=== PATIENT | female | born 1945 | race Caucasian/White ===

== ENCOUNTER 2016-02-17 08:48 | Emergency (ER) | payer BC ==
--- NOTE | 2016-02-17 09:17 | Emergency Department Record ---
History of Present Illness - General Chief Complaint: Cough Stated Complaint: HEADACHE/CHOUGH Time Seen by Provider: 02/17/16 09:16 Source: Patient Mode of Arrival: Ambulatory Limitations: No limitations - History of Present Illness Initial Comments: The patient is here due to a 4 day hx of a cough, congestion, and sinus pressure and ARELLANO. The pain is in the face and frontal head area. It has been gradually worsening after the onset 4 days ago. She denies any SOB, WOOD, fever, or any balance issues. She does have a hx of frequent bronchitis. MD Complaint: Cough, Rhinorrhea, Sinus pain Onset/Timin -: Days(s) Severity: Moderate Severity scale (1-10): 8 Consistency: Constant - Related Data Home Medications Medication Instructions Recorded Confirmed Last Taken Budesonide 0.25 mg INH BID #120 02/14/16 02/17/16 02/17/16 Fluticasone Propionate [Flonase 15.8 ml NS QHS 02/14/16 02/17/16 02/16/16 Allergy Relief] Losartan Potassium 50 mg PO DAILY #90 02/14/16 02/17/16 02/17/16 Previous Rx's Medication Instructions Recorded Doxycycline Monohydrate [Mondoxyne 100 mg PO BID #20 capsule 02/17/16 Nl] Prednisolone 15Mg/5Ml [Prelone 10 ml PO DAILY #40 ml 02/17/16 15Mg/5Ml] Allergies Allergy/AdvReac Type Severity Reaction Status Date / Time sulfamethoxazole Allergy Mild seizures Verified 02/17/16 08:58 [From Bactrim] trimethoprim [From Bactrim] Allergy Mild seizures Verified 02/17/16 08:58 erythromycin base Allergy Unknown ITCHING Verified 02/17/16 08:58 hydrocodone bitartrate Allergy Unknown ITCHING Verified 02/17/16 08:58 [From VICODIN] tramadol [TRAMADOL] Allergy Unknown ITCHING Verified 02/17/16 08:58 Travel Screening - Travel/Exposure Within Last 30 Days Have you traveled within the last 30 days?: No - Travel/Exposure Within Last Year Have you traveled outside the [place] in the last year?: No - Additonal Travel Details Have you been exposed to anyone with a communicable illness?: No - Travel Symptoms Symptom Screening: None Review of Systems Constitutional: Denies: Chills, Fever Eyes: Denies: Eye discharge ENT: Reports: Congestion. Denies: Dental pain Respiratory: Reports: Cough. Denies: Dyspnea Cardiovascular: Denies: Arrhythmia, Chest pain Past Medical History - SOCIAL HISTORY Smoking Status: Never smoker Alcohol Use: None Drug Use: None - RESPIRATORY Hx Respiratory Disorders: Yes Hx Bronchitis: Yes - CARDIOVASCULAR Hx Cardio Disorders: Yes Hx Hypertension: Yes - NEURO Hx Neuro Disorders: No - GI Hx GI Disorders: No - Hx Genitourinary Disorders: No - ENDOCRINE Hx Endocrine Disorders: No - MUSCULOSKELETAL Hx Musculoskeletal Disorders: No - PSYCH Hx Psych Problems: No - HEMATOLOGY/ONCOLOGY Hx Hematology/Oncology Disorders: No Family Medical History Any Significant Family History?: Yes Hx Heart Disease: Mother, Children Physical Exam - General General Appearance: Alert, Oriented x3, Cooperative, No acute distress - Head Head exam: Atraumatic, Normocephalic, Normal inspection - Eye Eye exam: Normal appearance, PERRL - ENT ENT exam: Normal exam, Mucous membranes moist, Normal external ear exam, Normal orophraynx, TM's normal bilaterally Nasal Exam: Sinus tenderness (mild to the frontal and maxillary area.) Throat exam: Normal inspection. negative: Tonsillar erythema, Tonsillar exudate - Neck Neck exam: Normal inspection, Full ROM. negative: Tenderness - Respiratory Respiratory exam: Normal lung sounds bilaterally. negative: Respiratory distress - Cardiovascular Cardiovascular Exam: Regular rate, Normal rhythm, Normal heart sounds - Extremities Extremities exam: Normal inspection, Full ROM, Normal capillary refill. negative: Tenderness - Neurological Neurological exam: Alert, Normal gait, Oriented X3, Other (Neg Drift and Rhomberg exams.). negative: Abnormal gait, Motor sensory deficit - Psychiatric Psychiatric exam: negative: Agitated, Anxious, Depressed Course Vital Signs 02/17/16 09:01 Temperature 98.2 F Pulse Rate 101 H Respiratory 16 Rate Blood Pressure 145/91 Pulse Ox 96 - Reevaluation(s) Reevaluation #1: I did discuss the xray results with the patient and the need for F/U. We will treat her for a sinus and upper resp infection and she will need to see her PCP early this week if not better. 02/17/16 10:06 Medical Decision Making - Data Complexity MDM Data: X-Ray Ordered and/or Reviewed - Radiology Data Radiology results: Report reviewed (CXR: Neg.) Disposition Disposition: Discharge Clinical Impression: Sinus infection Qualifiers: Sinusitis location: unspecified location Chronicity: acute Recurrence: not specified as recurrent Qualified Code(s): J01.90 - Acute sinusitis, unspecified Disposition: Home, Self-Care Condition: (1) Good Instructions: Cold Symptoms (ED) Additional Instructions: Please take the Doxycycline as directed along with the Prelone. Use Flonase as directed along with an OTC antihistamine decongestant. Please see your PCP if not better in 2 days. Return to the ER for any fever, increased head pain, vomiting, balance issues or any trouble breathing. Prescriptions: Doxycycline Monohydrate [Mondoxyne Nl] 100 mg PO BID #20 capsule Prednisolone 15Mg/5Ml [Prelone 15Mg/5Ml] 10 ml PO DAILY #40 ml Forms: Patient Portal Access Time of Disposition: 10:09
[2016-02-17] MEDS ORDERED: KETOROLAC 30 MG/ML VIAL IM ONE (09:23)
--- NOTE | 2016-02-20 14:29 | RADIOLOGY REPORT ---
EXAM: CHEST, TWO VIEWS HISTORY: COUGH. TECHNIQUE: Frontal and lateral views of the chest were obtained. Comparison: Prior chest from 06/04/05. FINDINGS: The heart size is normal. The lungs are clear. No pneumothorax. IMPRESSION: NO ACUTE CARDIOPULMONARY PROCESS. JOB NUMBER: [id number] MTDD
== END 2016-02-17 10:25 | disposition home or self-care (01) ==
LOC: ER 08:48
DX: J01.90 Acute sinusitis, unspecified (principal); R05 Cough; R51 Headache
CPT/HCPCS: 99283; 96372; 99284; 71020; J1885

== ENCOUNTER 2016-10-07 11:53 | Day surgery (SDC) | payer BC ==
[~2016-10-07 11:53] MED LIST: CEFAZOLIN 1 Gram 1 GM/50 ML BAG IVPB ONE
[2016-10-07] MEDS ORDERED: MECLIZINE 25 MG TABLET PO ONE (13:32)
[2016-10-07] MEDS ORDERED: FAMOTIDINE 20MG TABLET PO ONE (13:32)
[2016-10-07] MEDS ORDERED: METOCLOPRAMIDE 10 MG TABLET PO ONE (13:32)
[2016-10-07] MEDS ORDERED: MIDAZOLAM HCL 2MG/2ML VIAL IV ONE (14:00)
[2016-10-07] MEDS ORDERED: LIDOCAINE 2% MDV (20MG/ML) 20ML VIAL IV ONE (14:00)
[2016-10-07] MEDS ORDERED: PROPOFOL 10 MG/ML VIAL IV ONE (14:00)
[2016-10-07] MEDS ORDERED: FENTANYL PF 100MCG/2ML VIAL IV ONE (14:00)
--- NOTE | 2016-10-15 10:00 | Operative Note ---
DATE OF SURGERY: 10/07/2016 PREOPERATIVE DIAGNOSIS: Hematuria, flank pain, and renal calculi. POSTOPERATIVE DIAGNOSIS: Hematuria, flank pain, and renal calculi. OPERATION: Cystoscopy, bilateral retrograde pyelograms. Anesthesia: Sedation. Indication: A 70-year-old female with right-sided flank pain and one episode of gross hematuria. Initial CT scan showed tiny renal calculi. No evidence of obstruction. She presents today for cystoscopy to complete the hematuria evaluation and to assess for her flank pain. PROCEDURE: Preop informed consent was obtained. Antibiotics were given. Sedation was administered. The patient was brought to the operating room, placed in lithotomy position with genitalia prepped and draped sterilely. Cystoscopy was performed. Urethra appears unremarkable. The bladder was inspected systematically. She does have moderate cystocele formation. The ureteral orifices had normal appearance and positioning. Careful evaluation of the bladder showed no mucosal bladder abnormality and urine effluxing for both ureters was clear. Bilateral retrograde pyelograms were performed using mobile C-arm fluoroscopy given the limitations of mobile C-arm to show fine anatomic detail, especially in light of the patient's body habitus. There was no gross evidence of any upper tract filling defect, stricture, or dilatation bilaterally, and drainage was prompt bilaterally as well. There was some left pyelovenous backflow noted but otherwise no other significant abnormality was seen. There was rapid drainage from both sides. At this point the scope was removed after the bladder was drained, and bimanual examination was carried out again revealing cystocele but she is status post hysterectomy. There is no evidence of pelvic or vaginal mass. The procedure was then terminated. The patient was awake and transferred to recovery in stable condition. PLAN: The patient was asked to follow up in 3 months. If she has any further episodes of hematuria in the interim, I will recommend further evaluation with a contrast-enhanced CT urogram. CC: Dr. Rosa Isela BARKLEY
== END 2016-10-07 14:42 | disposition home or self-care (01) ==
LOC: SUR 11:53
PROVIDERS: ATTEND Urology
DX: R31.0 Gross hematuria (principal)
CPT/HCPCS: 52005; 00910; 76000; J3010; J0690

== ENCOUNTER 2016-11-17 08:22 | Day surgery (SDC) | payer BC ==
[~2016-11-17 08:22] MED LIST changes: +ACETAMINOPHEN 1,000 MG/100 ML BTL IV ONE; -CEFAZOLIN 1 Gram 1 GM/50 ML BAG IVPB ONE; +FAMOTIDINE 20MG TABLET PO ONE; +MECLIZINE 25 MG TABLET PO ONE; +METOCLOPRAMIDE 10 MG TABLET PO ONE
[2016-11-17 08:36] LABS: BASO % 0.5 % (0-6); EOS % 2.1 % (0-6); GRAN % 60.7 % (47-80); HEMATOCRIT 45.8 % (35.0-47.0); HEMOGLOBIN 14.9 gm/dl (11.6-16.0); LYMPH % 27.3 % (16-45); MEAN CELL VOLUME 94.4 fl (81-97); MEAN CORPUSCULAR HEMOGLOBIN 30.7 pg (27-33); MEAN CORPUSCULAR HGB CONC 32.5 g/dl (32-36); MEAN PLATELET VOLUME 8.5 fl (7.4-10.4); MONO % 9.4 % (0-9); PLATELET COUNT 176 K/uL (130-400); RED BLOOD COUNT 4.85 M/uL (3.80-5.40); RED CELL DISTRIBUTION WIDTH 13.4 % (11.5-14.5); WHITE BLOOD COUNT W/O DIFF 4.3 K/uL (4.2-12.2)
[2016-11-17 08:58] LABS: BLOOD UREA NITROGEN 20 mg/dL (8-23); CREATININE 0.7 mg/dL (0.5-0.9); EST GLOMERULAR FILTRATION RATE > 60 mL/min; GLUCOSE,RANDOM 105 mg/dL (74-109)
[2016-11-17] MEDS ORDERED: KETOROLAC 30 MG/ML VIAL IVP ONE (14:00)
[2016-11-17] MEDS ORDERED: NEOSTIGMINE 1 MG/1 ML,10ML VIAL IV ONE (14:00)
[2016-11-17] MEDS ORDERED: ROCURONIUM BROMIDE 50MG/5ML VIAL IV ONE (14:00)
[2016-11-17] MEDS ORDERED: FENTANYL PF 100MCG/2ML VIAL IV ONE (14:00)
[2016-11-17] MEDS ORDERED: ONDANSETRON HCL IV 4 MG/2 ML VIAL IVP ONE (14:00)
[2016-11-17] MEDS ORDERED: GLYCOPYRROLATE 0.2 MG/ML ML IV ONE (14:00)
[2016-11-17] MEDS ORDERED: MIDAZOLAM HCL 2MG/2ML VIAL IV ONE (14:00)
[2016-11-17] MEDS ORDERED: SEVOFLURANE 250 ML INH ONE (14:00)
[2016-11-17] MEDS ORDERED: PROPOFOL 10 MG/ML VIAL IV ONE (14:00)
[2016-11-17] MEDS ORDERED: LIDOCAINE 2% MDV (20MG/ML) 20ML VIAL IV ONE (14:00)
[2016-11-17] MEDS ORDERED: SUCCINYLCHOLINE 20 MG/ML 10ML IVP ONE (14:00)
[2016-11-17] MEDS ORDERED: BUPIVACAINE 0.25% W/EPI MPF 30ML VIAL IVP ONE (15:57)
--- NOTE | 2016-11-18 14:00 | Operative Note ---
DATE OF SURGERY: 11/17/2016 Surgeon: Kirill Roy DO PREOPERATIVE DIAGNOSIS: Symptomatic biliary colic. POSTOPERATIVE DIAGNOSIS: Symptomatic biliary colic. OPERATION: Laparoscopic cholecystectomy. Indication: The patient is a 62-year-old female who is having ongoing right subcostal postprandial pain. Imaging studies did reveal a stone stuck in the gallbladder neck. She had symptoms consistent with biliary colic. Risks, benefits, and alternatives of surgery were discussed. Risks include bleeding, infection, ductal injury, possible conversion to open, postoperative bile leak. She understood this fully. PROCEDURE: Therefore, after consent was signed and questions answered, she was taken to the operating room and placed in a supine position. General anesthesia was administered per the department of anesthesia. The patient's abdomen was prepped and draped in the usual sterile fashion. The infraumbilical region was anesthetized with a total of 3 mL of 0.25% Sensorcaine with epinephrine. A 2 cm infraumbilical incision was made. This was carried down to the anterior rectus fascia. This was incised. Rowdy clamps were placed on the fascial edges and brought up into the wound. Stay sutures of 0 Vicryl were placed. Posterior rectus sheath was identified and incised. The peritoneal cavity was entered bluntly. At this time, additional 5 mm epigastric and two 5 mm right subcostal ports were placed. The patient was then rotated into reverse Trendelenburg with rotation to left. The patient had dense adhesions to the anterior aspect of the gallbladder. These were taken down with the Chris harmonic. Further cephalad and lateral retraction was applied. The hepatocystic triangle was thoroughly dissected out. There was no aberrant anatomy, no posterior ductal structures. We did switch to a dome-down technique to aid in visualization. Therefore, after this was done, the gallbladder was completely free with the exception of this being tethered by the cystic duct and artery. There was absolutely no other anatomy in the area. Each one was doubly clipped and cut in a standard fashion. Gallbladder was then free. This was extracted infraumbilically. Right upper quadrant was rechecked and found to be hemostatic. No bleeding. No bile leak. No bowel injury noted. The patient was leveled out. The pneumoperitoneum was released. All ports were removed. The fascia was closed with 0 Vicryl in a [id number] fashion. The skin at all ports was closed with 4-0 Vicryl. She was taken to the recovery room in satisfactory condition. FINDINGS AT THE TIME OF SURGERY: Chronic cholecystitis. CC: Rosa Isela BARKLEY
== END 2016-11-17 14:05 | disposition home or self-care (01) ==
LOC: SUR 08:22
PROVIDERS: ATTEND Surgery
DX: K80.20 Calculus of gallbladder without cholecystitis without obstruction (principal); I10 Essential (primary) hypertension
CPT/HCPCS: 85025; 80048; 47562; 00790; J1885; J2405; J3010; J0330; J2710

== ENCOUNTER 2017-02-19 06:51 | Day surgery (SDC) | payer BC ==
[~2017-02-19 06:51] MED LIST changes: +CEFAZOLIN 2 Gram 2 GM/50 ML BAG IVPB ONE
[2017-02-19] MEDS ORDERED: LIDOCAINE 2% MDV (20MG/ML) 20ML VIAL IV ONE (06:52)
[2017-02-19] MEDS ORDERED: ONDANSETRON HCL IV 4 MG/2 ML VIAL IVP ONE (06:52)
[2017-02-19] MEDS ORDERED: EPHEDRINE SULFATE 50 MG/ML ML IV ONE (06:52)
[2017-02-19] MEDS ORDERED: DEXAMETHASONE 4 MG/ML 1ML VIAL IVP ONE (06:52)
[2017-02-19] MEDS ORDERED: FENTANYL PF 100MCG/2ML VIAL IV ONE (06:52)
[2017-02-19] MEDS ORDERED: PROPOFOL 10 MG/ML VIAL IV ONE (06:52)
[2017-02-19] MEDS ORDERED: ROPIVACAINE HCL (NAROPIN) /PF 5MG/ML 20ML VIAL IV ONE (06:52)
[2017-02-19] MEDS ORDERED: KETOROLAC 30 MG/ML VIAL IVP ONE (06:52)
[2017-02-19] MEDS ORDERED: MIDAZOLAM HCL 2MG/2ML VIAL IV ONE (06:52)
[2017-02-19] MEDS ORDERED: SEVOFLURANE 250 ML INH ONE (06:52)
[2017-02-19] MEDS ORDERED: EPINEPHRINE 1 MG/ML AMPUL SQ ONE (06:52)
[2017-02-19 07:42] LABS: BASO % 0.4 % (0-6); GRAN % 52.9 % (47-80); HEMATOCRIT 46.4 % (35.0-47.0); HEMOGLOBIN 15.1 gm/dl (11.6-16.0); LYMPH % 35.2 % (16-45); MEAN CELL VOLUME 94.5 fl (81-97); MEAN CORPUSCULAR HEMOGLOBIN 30.8 pg (27-33); MEAN CORPUSCULAR HGB CONC 32.5 g/dl (32-36); MEAN PLATELET VOLUME 8.5 fl (7.4-10.4); MONO % 8.5 % (0-9); PLATELET COUNT 201 K/uL (130-400); RED BLOOD COUNT 4.91 M/uL (3.80-5.40); RED CELL DISTRIBUTION WIDTH 13.5 % (11.5-14.5)
[2017-02-19 07:53] LABS: BLOOD UREA NITROGEN 19 mg/dL (8-23); CREATININE 0.7 mg/dL (0.5-0.9); EST GLOMERULAR FILTRATION RATE > 60 mL/min; GLUCOSE,RANDOM 102 mg/dL (74-109)
--- NOTE | 2017-02-20 12:30 | Operative Note ---
DATE OF SURGERY: 02/19/2017 Surgeon: Cody Bassett DO PREOPERATIVE DIAGNOSES: 1. Tear of the left rotator cuff. 2. Impingement syndrome, left shoulder. POSTOPERATIVE DIAGNOSES: 1. Tear of the left rotator cuff. 2. Impingement syndrome of left shoulder. 3. Chondromalacia of the humeral head, left shoulder. OPERATION: 1. Arthroscopic repair of the left rotator cuff. 2. Arthroscopic subacromial decompression and acromioplasty, left shoulder. 3. Arthroscopic chondroplasty of the humeral head, left shoulder. DESCRIPTION OF PROCEDURE: This 71-year-old female was taken to the operating room. General anesthesia was induced. The patient was placed in teach chair position. All bony prominences well padded and head well secured. The left shoulder prepped with Hibiclens and draped in the usual sterile fashion. A posterior portal was established in the glenohumeral joint of the left shoulder and initial evaluation of the joint demonstrated evidence of a tear of the supraspinatus tendon. Full-thickness tear was present anteriorly just behind the biceps tendon which appeared to be normal. An anterior portal was established, and probing of the labrum did not reveal any detachment from the bony glenoid but there was superficial fraying of the anterior-superior labrum, which was debrided with the rotating shaver. We placed a marker suture in the rotator cuff from a lateral approach. Subsequently, the scope was placed in the subacromial space and thorough subacromial decompression and acromioplasty were performed. The area of the suture was identified. It was marked. The suture was removed. We then debrided the tear utilizing the Arthrocare wand and rotating shaver. Thorough subacromial decompression and acromioplasty gave us excellent visualization. Once the extent of the tear was identified, we then began repair by first debriding the tuberosity to healthy appearing bone. An Arthrex speed bridge technique was used by placing 2 SwiveLock anchors adjacent to the articular cartilage; one at the anterior and one at the posterior margin of the tear. One with FiberTape and the second with TigerTape. These were then shuttled through the rotator cuff and a single limb of each one of these sutures was then grasped and placed through a 3rd SwiveLock anchor which was placed inferior to the anterior anchor. Traction placed on the sutures to bring the cuff down tightly to its anatomic position. Subsequently the 2 remaining tails of sutures were placed through a 4th SwiveLock anchor which was placed inferior to the posterior anchor and again traction placed on the sutures to bring the cuff down tightly. This was seen to be satisfactory and the sutures were cut. The wound was irrigated and the instruments were removed. The portals closed with 4-0 nylon suture. Sterile dressings were applied with an UltraSling. The patient was taken to the recovery room in satisfactory condition. GROSS PATHOLOGY: Advanced degenerative changes of the humeral head were present with severe grade 3 changes being identified at the articular surface. This lesion was at least 3-4 cm in greatest dimension. Full-thickness tear of the rotator cuff was also apparent. The biceps appeared normal. Minimal superficial fraying of the labrum was identified but was otherwise unremarkable. The tendon was repaired as described above using Arthrex speed bridge technique using 4.75 SwiveLock anchors. CC: DO FILIPPO Roberson
== END 2017-02-19 12:45 | disposition home or self-care (01) ==
LOC: SUR 06:51
PROVIDERS: ATTEND Orthopaedic Surgery
DX: M75.122 Complete rotator cuff tear or rupture of left shoulder, not specified as traumatic (principal); M25.812 Other specified joint disorders, left shoulder; M94.212 Chondromalacia, left shoulder; I10 Essential (primary) hypertension
CPT/HCPCS: 29827; 29826; 01630; 64415; 85025; 80048; J1885; J2405; J3010; J0690; J2795; J0171

== ENCOUNTER 2017-02-27 13:26 | Emergency (ER) | payer BC ==
--- NOTE | 2017-02-27 13:49 | Emergency Department Record ---
History of Present Illness - General Chief complaint: Swelling of legs Time Seen by Provider: 02/27/17 13:38 Source: Patient Mode of Arrival: Ambulatory Limitations: No limitations - History of Present Illness Initial comments: The patient is here due to feeling like her legs are swollen for the last day or so. She denies any leg, calf or thigh pain but just feels like her ankles are tight. There is no reported CP, SOB, fever, or cough. The patient states she may have gained 10 lbs in the last week. She did have shoulder surgery last week but has been ambulatory every day. MD Complaint: Extremity swelling Onset/Timin -: Days(s) Location: Bilateral, Ankle, Lower Leg History of Same: Yes Consistency: Constant Improves with: Nothing Worsens with: Nothing Associated Symptoms: Denies other symptoms - Related Data Home Medications Medication Instructions Recorded Confirmed Last Taken Aspirin 81 mg PO DAILY 02/27/17 02/27/17 02/27/17 Previous Rx's Medication Instructions Recorded Furosemide [Lasix] 20 mg PO DAILY #5 tablet 02/27/17 Potassium Chloride 20 meq PO DAILY #5 tab.er.prt 02/27/17 Allergies Allergy/AdvReac Type Severity Reaction Status Date / Time sulfamethoxazole Allergy Mild seizures Verified 02/17/16 08:58 [From Bactrim] trimethoprim [From Bactrim] Allergy Mild seizures Verified 02/17/16 08:58 erythromycin base Allergy Unknown ITCHING Verified 02/17/16 08:58 hydrocodone bitartrate Allergy Unknown ITCHING Verified 02/17/16 08:58 [From VICODIN] tramadol [TRAMADOL] Allergy Unknown ITCHING Verified 02/17/16 08:58 Travel Screening - Travel/Exposure Within Last 30 Days Have you traveled within the last 30 days?: No - Travel/Exposure Within Last Year Have you traveled outside the [place] in the last year?: No - Additonal Travel Details Have you been exposed to anyone with a communicable illness?: No - Travel Symptoms Symptom Screening: None Review of Systems Constitutional: Denies: Chills, Fever Eyes: Denies: Eye discharge ENT: Denies: Congestion Respiratory: Denies: Cough, Dyspnea Cardiovascular: Denies: Chest pain Past Medical History - SOCIAL HISTORY Smoking Status: Never smoker Alcohol Use: None Drug Use: None - RESPIRATORY Hx Respiratory Disorders: Yes Hx Bronchitis: Yes (CHRONIC) - CARDIOVASCULAR Hx Cardio Disorders: Yes Hx Hypertension: Yes (CONTROLLED WITH MEDS) - NEURO Hx Neuro Disorders: No - GI Hx GI Disorders: Yes Hx Abdominal Pain: Yes (RT FLANK) Hx Reflux: Yes (OCC.) Hx Nausea/Vomiting: Yes (occass.) Hx of Polyps: Yes (POLYP COLON BENIGN) - Hx Genitourinary Disorders: No Hx Kidney Stones: Yes (POSSIBLY PASSED) - ENDOCRINE Hx Endocrine Disorders: No - MUSCULOSKELETAL Hx Musculoskeletal Disorders: No Hx Arthritis: Yes (OSTEOARTHRITIS) Comment:: HX FACET BLOCK, SPONDYLOSIS - PSYCH Hx Psych Problems: No - HEMATOLOGY/ONCOLOGY Hx Hematology/Oncology Disorders: No Family Medical History Any Significant Family History?: Yes Hx Heart Disease: Mother, Children Physical Exam - General General Appearance: Alert, Oriented x3, Cooperative, No acute distress - Head Head exam: Atraumatic, Normocephalic, Normal inspection - Eye Eye exam: Normal appearance, PERRL - Neck Neck exam: Normal inspection, Full ROM. negative: Tenderness - Respiratory Respiratory exam: Normal lung sounds bilaterally. negative: Respiratory distress - Cardiovascular Cardiovascular Exam: Regular rate, Normal rhythm, Normal heart sounds - GI/Abdominal GI/Abdominal exam: Soft, Normal bowel sounds. negative: Tenderness - Extremities Extremities exam: Normal inspection, Full ROM, Other (There is no pedal edema but the patient states her ankles are more swollen than normal.). negative: Calf tenderness, Joint swelling, Pedal edema, Tenderness (There is no calf, posterior knee or thigh tenderness.) - Neurological Neurological exam: Alert, Normal gait. negative: Abnormal gait, Motor sensory deficit Course Vital Signs 02/27/17 13:37 Temperature 98.5 F Pulse Rate [ 97 H Pulse Ox Probe] Respiratory 18 Rate Blood Pressure 179/94 [Right Arm] Pulse Ox 97 - Reevaluation(s) Reevaluation #1: The patient is doing very well at this time. She denies any CP, SOB, or any leg pain. I did discuss the lab results and the need for f/u with her PCP. The patient is aware of the mildly elevated single LFT test. 02/27/17 14:34 Medical Decision Making - Lab Data Result diagrams: 02/27/17 13:50 02/27/17 13:50 Disposition Disposition: Discharge Clinical Impression: Edema extremities Disposition: Home, Self-Care Condition: (2) Stable Instructions: Leg Edema (ED) Additional Instructions: Please take the medicines as directed for 5 days. Please see your PCP next week for recheck and return to the ER for any worsening symptoms. Prescriptions: Furosemide [Lasix] 20 mg PO DAILY #5 tablet Potassium Chloride 20 meq PO DAILY #5 tab.er.prt Forms: Patient Portal Access Time of Disposition: 14:33 Quality - Quality Measures Quality Measures: N/A - Blood Pressure Screening View Details: Yes Does Patient Have Any of the Following: No Blood Pressure Classification: Pre-Hypertensive BP Reading Systolic Measurement: 161 Diastolic Measurement: 84 Screening for High Blood Pressure: < Pre-Hypertensive BP, F/U Documented > [ [id number]] Pre-Hypertensive Follow-up Interventions: Referral to alternative/primary care provider.
[2017-02-27 14:05] LABS: BASO % 0.3 % (0-6); EOS % 2.9 % (0-6); GRAN % 64.3 % (47-80); HEMOGLOBIN 13.5 gm/dl (11.6-16.0); LYMPH % 23.7 % (16-45); MEAN CELL VOLUME 95.9 fl (81-97); MEAN CORPUSCULAR HEMOGLOBIN 30.8 pg (27-33); MEAN CORPUSCULAR HGB CONC 32.1 g/dl (32-36); MEAN PLATELET VOLUME 8.5 fl (7.4-10.4); MONO % 8.8 % (0-9); PLATELET COUNT 195 K/uL (130-400); RED BLOOD COUNT 4.38 M/uL (3.80-5.40); RED CELL DISTRIBUTION WIDTH 13.6 % (11.5-14.5); WHITE BLOOD COUNT W/O DIFF 5.9 K/uL (4.2-12.2)
[2017-02-27 14:20] LABS: BLOOD UREA NITROGEN 22 mg/dL (8-23); CREATININE 0.7 mg/dL (0.5-0.9); EST GLOMERULAR FILTRATION RATE > 60 mL/min
[2017-02-27 14:23] LABS: GLUCOSE,RANDOM 95 mg/dL (74-109)
[2017-02-27 14:26] LABS: ALB/GLOB RATIO 1.4 (1.1-1.8); ALBUMIN 4.1 g/dL (4.0-5.0); ALKALINE PHOSPHATASE 102 U/L (35-104); ALT/SGPT 43 U/L (<33); AST/SGOT 26 U/L (10.0-35.0)
== END 2017-02-27 14:41 | disposition home or self-care (01) ==
LOC: ER 13:26
DX: R60.0 Localized edema (principal); I10 Essential (primary) hypertension
CPT/HCPCS: 80053; 85025; 99283

== ENCOUNTER 2017-08-24 05:29 | Emergency (ER) | payer BC ==
[2017-08-24] MEDS ORDERED: ONDANSETRON HCL IV 4 MG/2 ML VIAL IV ONE (06:03)
[2017-08-24] MEDS ORDERED: 0.9 % SODIUM CHLORIDE 1,000 ML BAG IV ONE (06:03)
--- NOTE | 2017-08-24 06:03 | Emergency Department Record ---
History of Present Illness - General Source: Patient Mode of Arrival: Ambulatory Limitations: No limitations - History of Present Illness Initial comments: pt thinks she has a kidney stone. she has had them in the past. she has nausea. she has had pain for 2 days MD Complaint: Other Onset/Timin -: Days(s) Radiation: R flank Severity: Moderate Severity scale (1-10): 6 Quality: Sharp Consistency: Constant, Getting worse Improves with: Medication Worsens with: Other Patient : No Associated Symptoms: Abdominal pain, Nausea/vomiting - Related Data Sexually active: No <Alexandra Hoyos - Last Filed: 08/24/17 06:45> <Aldo Olvera - Last Filed: 08/24/17 07:16> - General Chief complaint: Flank Pain Stated complaint: FLANK PAIN Time Seen by Provider: 08/24/17 05:48 - Related Data Previous Rx's Medication Instructions Recorded Lidocaine Patch [Lidoderm] 1 ea TOP DAILY #7 patch 08/24/17 Allergies Allergy/AdvReac Type Severity Reaction Status Date / Time sulfamethoxazole Allergy Mild seizures Verified 08/24/17 05:43 [From Bactrim] trimethoprim [From Bactrim] Allergy Mild seizures Verified 08/24/17 05:43 erythromycin base Allergy Unknown ITCHING Verified 08/24/17 05:43 hydrocodone bitartrate Allergy Unknown ITCHING Verified 08/24/17 05:43 [From VICODIN] tramadol [TRAMADOL] Allergy Unknown ITCHING Verified 08/24/17 05:43 Travel Screening - Travel/Exposure Within Last 30 Days Have you traveled within the last 30 days?: No <Alexandra Hoyos - Last Filed: 08/24/17 06:45> Review of Systems Reviewed: No additional complaints except as noted below Constitutional: Reports: As per HPI. Denies: Chills, Fever, Malaise, Night sweats, Weakness, Weight change Eyes: Reports: As per HPI. Denies: Eye discharge, Eye pain, Photophobia, Vision change ENT: Reports: As per HPI. Denies: Congestion, Dental pain, Ear pain, Epistaxis , Hearing loss, Throat pain Respiratory: Reports: As per HPI. Denies: Cough, Dyspnea, Hemoptysis, Stridor, Wheezes Cardiovascular: Reports: As per HPI. Denies: Arrhythmia, Chest pain, Dyspnea on exertion, Edema, Murmurs, Orthopnea, Palpitations, Paroxysmal nocturnal dyspnea, Rheumatic Fever, Syncope Endocrine: Reports: As per HPI. Denies: Fatigue, Heat or cold intolerance, Polydipsia, Polyuria Gastrointestinal: Reports: As per HPI, Abdominal pain, Nausea. Denies: Constipation, Diarrhea, Hematemesis, Hematochezia, Melena, Vomiting Genitourinary: Reports: As per HPI. Denies: Abnormal menses, Discharge, Dyspareunia, Dysuria, Frequency, Hematuria, Incontinence, Retention, Urgency Musculoskeletal: Reports: As per HPI. Denies: Arthralgia, Back pain, Gout, Joint swelling, Myalgia, Neck pain Skin: Reports: As per HPI. Denies: Bruising, Change in color, Change in hair/ nails, Lesions, Pruritus, Rash Neurological: Reports: As per HPI. Denies: Abnormal gait, Confusion, Headache, Numbness, Paresthesias, Seizure, Tingling, Tremors, Vertigo, Weakness Psychiatric: Reports: As per HPI. Denies: Anxiety, Auditory hallucinations, Depression, Homicidal thoughts, Suicidal thoughts, Visual hallucinations Hematological/Lymphatic: Reports: As per HPI. Denies: Anemia, Blood Clots, Easy bleeding, Easy bruising, Swollen glands <Alexandra Hoyos - Last Filed: 08/24/17 06:45> Past Medical History - SOCIAL HISTORY Smoking Status: Never smoker Alcohol Use: None Drug Use: None - RESPIRATORY Hx Respiratory Disorders: Yes Hx Bronchitis: Yes (CHRONIC) - CARDIOVASCULAR Hx Cardio Disorders: Yes Hx Hypertension: Yes (CONTROLLED WITH MEDS) - NEURO Hx Neuro Disorders: No - GI Hx GI Disorders: Yes Hx Abdominal Pain: Yes (RT FLANK) Hx Reflux: Yes (OCC.) Hx Nausea/Vomiting: Yes (occass.) Hx of Polyps: Yes (POLYP COLON BENIGN) - Hx Genitourinary Disorders: Yes Hx Kidney Stones: Yes (POSSIBLY PASSED) - ENDOCRINE Hx Endocrine Disorders: No - MUSCULOSKELETAL Hx Musculoskeletal Disorders: No Hx Arthritis: Yes (OSTEOARTHRITIS) Comment:: HX FACET BLOCK, SPONDYLOSIS - PSYCH Hx Psych Problems: No - HEMATOLOGY/ONCOLOGY Hx Hematology/Oncology Disorders: No <Alexandra Hoyos - Last Filed: 08/24/17 06:45> Family Medical History Any Significant Family History?: Yes Hx Heart Disease: Mother, Children <Alexandra Hoyos - Last Filed: 08/24/17 06:45> Physical Exam - General General Appearance: Alert, Oriented x3, Cooperative, Mild distress - Head Head exam: Normal inspection - Eye Eye exam: Normal appearance, PERRL, EOMI Pupils: Normal accommodation - ENT ENT exam: Normal exam, Mucous membranes moist, Normal external ear exam, Normal orophraynx Ear exam: Normal external inspection. negative: External canal tenderness Nasal Exam: Normal inspection. negative: Discharge, Sinus tenderness Mouth exam: Normal external inspection, Tongue normal Teeth exam: Normal inspection. negative: Dental caries Throat exam: Normal inspection. negative: Tonsillar erythema, Tonsillar exudate - Neck Neck exam: Normal inspection, Full ROM. negative: Tenderness - Respiratory Respiratory exam: Normal lung sounds bilaterally. negative: Respiratory distress - Cardiovascular Cardiovascular Exam: Regular rate, Normal rhythm, Normal heart sounds - GI/Abdominal GI/Abdominal exam: Soft, Normal bowel sounds. negative: Tenderness - Rectal Rectal exam: Deferred - exam: Deferred - Extremities Extremities exam: Normal inspection, Full ROM, Normal capillary refill. negative: Tenderness - Back Back exam: Reports: Normal inspection, Full ROM. Denies: Muscle spasm, Rash noted, Tenderness - Neurological Neurological exam: Alert, CN II-XII intact, Normal gait, Oriented X3 - Psychiatric Psychiatric exam: Normal affect, Normal mood - Skin Skin exam: Dry, Intact, Normal color, Warm <Alexandra Hoyos - Last Filed: 08/24/17 06:45> Course Vital Signs 08/24/17 05:32 Temperature 98.0 F Pulse Rate 66 Respiratory 20 Rate Blood Pressure 176/83 Pulse Ox 97 - Reevaluation(s) Reevaluation #1: 08/24/17 06:46 care being assumed by dr olvera <Alexandra Hoyos - Last Filed: 08/24/17 06:45> Vital Signs 08/24/17 08/24/17 08/24/17 05:32 06:54 07:12 Temperature 98.0 F Pulse Rate 66 Pulse Rate [ 60 Pulse Ox Probe] Respiratory 20 20 Rate Blood Pressure 176/83 Blood Pressure 158/98 [Left Arm] Pulse Ox 97 98 <Aldo Olvera - Last Filed: 08/24/17 07:16> Medical Decision Making - Lab Data Result diagrams: 08/24/17 05:40 08/24/17 05:40 <Alexandra Hoyos Tadeo - Last Filed: 08/24/17 06:45> - Data Complexity MDM Data: Labs Ordered and/or Reviewed, X-Ray Ordered and/or Reviewed - Lab Data Result diagrams: 08/24/17 05:40 08/24/17 05:40 Lab Results 08/24/17 08/24/17 08/24/17 Range/Units 05:40 05:40 06:35 WBC 5.6 (4.2-12.2) K/uL RBC 4.95 (3.80-5.40) M/uL Hgb 15.2 (11.6-16.0) gm/dl Hct 47.4 H (35.0-47.0) % MCV 95.8 (81-97) fl MCH 30.7 (27-33) pg MCHC 32.1 (32-36) g/dl RDW 13.6 (11.5-14.5) % Plt Count 209 (130-400) K/uL MPV 8.7 (7.4-10.4) fl Gran % 51.5 (47-80) % Lymphocytes % 36.3 (16-45) % Monocytes % 8.4 (0-9) % Eosinophils % 3.4 (0-6) % Basophils % 0.4 (0-6) % Sodium 141 (136-145) mmol/L Potassium 4.1 (3.4-4.5) mmol/L Chloride 103 (98-107) mmol/L Carbon Dioxide 27.0 (22-29) mmol/L Anion Gap 11.0 (7-16) BUN 30 H (8-23) mg/dL Creatinine 0.9 (0.5-0.9) mg/dL Estimated GFR > 60 mL/min Random Glucose 125 H (74-109) mg/dL Calcium 9.4 (8.8-10.2) mg/dL Total Bilirubin 0.70 (0.2-1.0) mg/dL AST 21 (10.0-35.0) U/L ALT 27 (<33) U/L Alkaline Phosphatase 93 (35-104) U/L Total Protein 7.1 (6.6-8.7) g/dL Albumin 4.2 (4.0-5.0) g/dL Globulin 2.9 (1.4-4.8) gm/dL Albumin/Globulin Ratio 1.4 (1.1-1.8) Urine Color Yellow Urine Appearance Clear Urine pH 6.5 (5.0-8.0) Ur Specific [place] 1.020 (1.002-1.030) Urine Protein Negative (NEGATIVE) Urine Glucose (UA) Negative (NEGATIVE) Urine Ketones Negative (NEGATIVE) Urine Blood Negative (NEGATIVE) Urine Nitrite Negative (NEGATIVE) Urine Bilirubin Negative (NEGATIVE) Urine Urobilinogen 0.2 (0.20 - 1.00) E.U./dL Ur Leukocyte Esterase Negative (NEGATIVE) - Radiology Data Radiology results: Report reviewed (CT: 5 mm nonobstructing calculus R lower pole of kidney, neg hydro or ureter stone.) <Aldo Olvera - Last Filed: 08/24/17 07:16> Disposition Disposition: Discharge <Alexandra Hoyos - Last Filed: 08/24/17 06:45> Disposition: Discharge Time of Disposition: 07:15 <Aldo Olvera - Last Filed: 08/24/17 07:16> Clinical Impression: Flank pain, acute Disposition: Home, Self-Care Condition: (2) Stable Instructions: Flank Pain (ED) Additional Instructions: PLease take you home pain medicines as needed. Use the Lidoderm as directed. Please see your family doctor for recheck later this week. Return to the ER for any worsening issues. Prescriptions: Lidocaine Patch [Lidoderm] 1 ea TOP DAILY #7 patch Forms: Patient Portal Access Quality - Blood Pressure Screening Does Patient Have Any of the Following: No Blood Pressure Classification: Pre-Hypertensive BP Reading Systolic Measurement: 176 Diastolic Measurement: 83 Screening for High Blood Pressure: < Pre-Hypertensive BP, F/U Documented > [ G8950] <Alexandra Hoyos - Last Filed: 08/24/17 06:45> - Blood Pressure Screening Does Patient Have Any of the Following: No Blood Pressure Classification: Pre-Hypertensive BP Reading Systolic Measurement: 176 Diastolic Measurement: 83 Screening for High Blood Pressure: < Pre-Hypertensive BP, F/U Documented > [ G8950] <Aldo Olvera - Last Filed: 08/24/17 07:16>
[2017-08-24 06:12] LABS: BASO % 0.4 % (0-6); EOS % 3.4 % (0-6); GRAN % 51.5 % (47-80); HEMATOCRIT 47.4 % (35.0-47.0); HEMOGLOBIN 15.2 gm/dl (11.6-16.0); LYMPH % 36.3 % (16-45); MEAN CELL VOLUME 95.8 fl (81-97); MEAN CORPUSCULAR HEMOGLOBIN 30.7 pg (27-33); MEAN CORPUSCULAR HGB CONC 32.1 g/dl (32-36); MEAN PLATELET VOLUME 8.7 fl (7.4-10.4); MONO % 8.4 % (0-9); PLATELET COUNT 209 K/uL (130-400); RED BLOOD COUNT 4.95 M/uL (3.80-5.40); RED CELL DISTRIBUTION WIDTH 13.6 % (11.5-14.5); WHITE BLOOD COUNT W/O DIFF 5.6 K/uL (4.2-12.2)
[2017-08-24 06:25] LABS: BLOOD UREA NITROGEN 30 mg/dL (8-23); CREATININE 0.9 mg/dL (0.5-0.9); EST GLOMERULAR FILTRATION RATE > 60 mL/min
[2017-08-24 06:26] LABS: TOTAL PROTEIN 7.1 g/dL (6.6-8.7)
[2017-08-24 06:28] LABS: GLUCOSE,RANDOM 125 mg/dL (74-109)
[2017-08-24 06:30] LABS: ALT/SGPT 27 U/L (<33)
[2017-08-24 06:31] LABS: ALB/GLOB RATIO 1.4 (1.1-1.8); ALBUMIN 4.2 g/dL (4.0-5.0); ALKALINE PHOSPHATASE 93 U/L (35-104); AST/SGOT 21 U/L (10.0-35.0)
[2017-08-24 06:35] LABS: URINE APPEARANCE CLEAR; URINE BILIRUBIN NEGATIVE (NEGATIVE); URINE BLOOD NEGATIVE (NEGATIVE); URINE COLOR YELLOW; URINE GLUCOSE (UA) NEGATIVE (NEGATIVE); URINE KETONE NEGATIVE (NEGATIVE); URINE LEUKOCYTE ESTERASE NEGATIVE (NEGATIVE); URINE NITRITE NEGATIVE (NEGATIVE); URINE PROTEIN NEGATIVE (NEGATIVE); URINE UROBILINOGEN 0.2 E.U./dL (0.20 - 1.00)
[2017-08-24] MEDS ORDERED: KETOROLAC 30 MG/ML VIAL IVP ONE (06:44)
--- NOTE | 2017-08-24 13:45 | CT SCAN REPORT ---
EXAM: CT OF THE ABDOMEN AND PELVIS WITHOUT CONTRAST HISTORY: RIGHT FLANK PAIN FOR TWO DAYS. TECHNIQUE: Thin collimation helical CT examination of the abdomen and pelvis was performed without oral or intravenous contrast administration. Lack of oral and IV contrast utilization limits evaluation of the bowel and solid viscera respectively. Comparison: CT of the abdomen and pelvis without contrast dated 08/27/16. FINDINGS: Minor bibasilar atelectasis is suggested. No lung base consolidation , pleural effusion, or pericardial effusion. The heart is not enlarged. There is diffuse decreased density of the liver relative to the spleen consistent with steatosis. No new focal hepatic lesion is, however, seen. By history, the gallbladder is surgically absent. A small focus of dense material within the gallbladder fossa likely relates to post surgical change. No biliary ductal dilatation. The spleen, pancreas, and adrenal glands remain normal in appearance. There is a 4 mm nonobstructing calculus in the lower right kidney. This is larger than on the prior examination. No other nephrolithiasis is seen. Fluid density prominence is again noted in each renal sinus with the dominant component on the right measuring 3.7 x 4.1 cm. This is not significantly changed. The dominant component on the left measures 2.9 x 3.1 cm, also unchanged. These are likely peripelvic renal cysts. No definite hydronephrosis. No suspicious calcification noted along the course of either ureter. No intraabdominal nor retroperitoneal lymphadenopathy. The abdominal aorta and iliac arteries are without aneurysmal dilatation. The uterus is surgically absent. No pelvic mass, lymphadenopathy, or free pelvic fluid is seen. No intrinsic urinary bladder abnormality is identified though evaluation is limited by incomplete distention. No gross bowel dilatation nor bowel wall thickening. The cecum is medially located at the mid abdominal level just right of midline. The appendix not visualized though no inflammatory changes are noted in its expected location. A tiny fat filled umbilical hernia is present appearing uncomplicated. No lytic or blastic bone lesion. There are degenerative changes scattered within the visualized spine with facet arthropathy most pronounced at the L4-L5 level where it is advanced and there is associated minimal anterolisthesis of L4 on L5. IMPRESSION: 1. 4 MM NONOBSTRUCTING CALCULUS IN THE LOWER POLE OF THE RIGHT KIDNEY. NO CONVINCING EVIDENCE OF OBSTRUCTIVE UROPATHY. 2. MULTIPLE FLUID DENSITY STRUCTURES IN EACH RENAL SINUS REDEMONSTRATED, THE PATTERN OF WHICH IS UNCHANGED CONSISTENT WITH PERIPELVIC RENAL CYSTS. 3. NO CONVINCING CT EVIDENCE OF AN ACUTE INTRAABDOMINAL NOR INTRAPELVIC PROCESS. 4. HEPATIC STEATOSIS. 5. STATUS POST CHOLECYSTECTOMY AND HYSTERECTOMY. 6. TINY FAT FILLED UMBILICAL HERNIA. JOB NUMBER: [id number] MTDD
== END 2017-08-24 07:27 | disposition home or self-care (01) ==
LOC: ER 05:29
DX: N20.0 Calculus of kidney (principal); R11.0 Nausea; I10 Essential (primary) hypertension
CPT/HCPCS: 99284 ×2; 96374; 85025; 80053; 81003; 74176; J1885; J7030

== ENCOUNTER 2018-01-31 18:02 | Emergency (ER) | payer BC ==
[2018-01-31] MEDS ORDERED: ACETAMINOPHEN 325 MG TAB PO ONE (18:17)
[2018-01-31] MEDS ORDERED: LORAZEPAM 0.5 MG TABLET PO ONE (18:17)
--- NOTE | 2018-01-31 18:18 | Emergency Department Record ---
History of Present Illness - General Chief Complaint: Dizziness Stated Complaint: DIZINESS,HEADACHE,HIGH BLOOD PRESSURE Time Seen by Provider: 01/31/18 18:10 Source: Patient Mode of Arrival: Ambulatory Limitations: No limitations - History of Present Illness Initial Comments: The patient is here due to not feeling well for a couple of days. She has had a mild frontal ARELLANO and mild dizziness which she describes as just not feeling quite right and being mildly lightheaded. She has been taking her BP at home and it has been elevated in the 190/90 range so she decided to come to the ER. The patient did see her Physician about 2 weeks ago and had her Losartan doubled due to her BP being elevated then also. She denies any CP, SOB, AP, visual changes, neck pain, or balance issues. MD Complaint: Dizziness Onset/Timin -: Hour(s) Timing: Gradual onset - [place] Coma Scale Eye Response: (4) Open spontaneously Motor Response: (6) Obeys commands Verbal Response: (5) Oriented [place] Total: 15 - Related Data Previous Rx's Medication Instructions Recorded Lidocaine Patch [Lidoderm] 1 ea TOP DAILY #7 patch 08/24/17 Meclizine HCl [Antivert] 25 mg PO BID #14 tab 01/31/18 Allergies Allergy/AdvReac Type Severity Reaction Status Date / Time sulfamethoxazole Allergy Mild seizures Verified 01/31/18 18:13 [From Bactrim] trimethoprim [From Bactrim] Allergy Mild seizures Verified 01/31/18 18:13 erythromycin base Allergy Unknown ITCHING Verified 01/31/18 18:13 hydrocodone bitartrate Allergy Unknown ITCHING Verified 01/31/18 18:13 [From VICODIN] tramadol [TRAMADOL] Allergy Unknown ITCHING Verified 01/31/18 18:13 Travel Screening - Travel/Exposure Within Last 30 Days Have you traveled within the last 30 days?: No - Travel Symptoms Symptom Screening: None Review of Systems Constitutional: Denies: Chills, Fever Eyes: Denies: Eye discharge ENT: Denies: Congestion Respiratory: Denies: Cough, Dyspnea Past Medical History - SOCIAL HISTORY Smoking Status: Never smoker Alcohol Use: None Drug Use: None - RESPIRATORY Hx Respiratory Disorders: Yes Hx Bronchitis: Yes (CHRONIC) - CARDIOVASCULAR Hx Cardio Disorders: Yes Hx Hypertension: Yes - NEURO Hx Neuro Disorders: No - GI Hx GI Disorders: Yes Hx Abdominal Pain: Yes (RT FLANK) Hx Reflux: Yes (OCC.) Hx Nausea/Vomiting: Yes (occass.) Hx of Polyps: Yes (POLYP COLON BENIGN) - Hx Genitourinary Disorders: Yes Hx Kidney Stones: Yes (POSSIBLY PASSED) - ENDOCRINE Hx Endocrine Disorders: No - MUSCULOSKELETAL Hx Musculoskeletal Disorders: No Hx Arthritis: Yes (OSTEOARTHRITIS) Comment:: HX FACET BLOCK, SPONDYLOSIS - PSYCH Hx Psych Problems: No - HEMATOLOGY/ONCOLOGY Hx Hematology/Oncology Disorders: No Family Medical History Any Significant Family History?: Yes Hx Heart Disease: Mother, Children Physical Exam - General General Appearance: Alert, Oriented x3, Cooperative, No acute distress - Head Head exam: Atraumatic, Normocephalic, Normal inspection - Eye Eye exam: Normal appearance, PERRL, EOMI - ENT ENT exam: Normal exam, Mucous membranes moist, Normal external ear exam, Normal orophraynx, TM's normal bilaterally Throat exam: Normal inspection. negative: Tonsillar erythema, Tonsillar exudate - Neck Neck exam: Normal inspection, Full ROM. negative: Lymphadenopathy, Meningismus , Tenderness - Respiratory Respiratory exam: Normal lung sounds bilaterally. negative: Respiratory distress - Cardiovascular Cardiovascular Exam: Regular rate, Normal rhythm, Normal heart sounds - GI/Abdominal GI/Abdominal exam: Soft, Normal bowel sounds. negative: Tenderness - Extremities Extremities exam: Normal inspection, Full ROM, Normal capillary refill. negative: Tenderness - Neurological Neurological exam: Alert, CN II-XII intact, Normal gait, Oriented X3, Other ( Neg Drift and Rhomberg exams.). negative: Abnormal gait, Altered, Motor sensory deficit - Psychiatric Psychiatric exam: negative: Anxious, Depressed Course Vital Signs 01/31/18 18:06 Temperature 98.1 F Pulse Rate 88 Respiratory 22 Rate Blood Pressure 188/99 Pulse Ox 97 - Reevaluation(s) Reevaluation #1: The patient is doing better at this time. Her BP is much improved and she states her ARELLANO is improved but not gone. There has been no speech issues, trouble swallowing or visual changes. We will order a HEAD CT due to the persistent mild ARELLANO. 01/31/18 19:27 Reevaluation #2: The patient is doing very well at discharge. She is up walking with no problems and her BP is very stable and normal for her when compared to past visits. 01/31/18 20:54 Medical Decision Making - Data Complexity MDM Data: Labs Ordered and/or Reviewed, X-Ray Ordered and/or Reviewed, EKG Ordered and/or Reviewed - Lab Data Result diagrams: 01/31/18 18:25 01/31/18 18:25 - EKG Data -: EKG Interpreted by Me EKG: No Acute Changes, Unchanged From Previous - Radiology Data Radiology results: Report reviewed (Head CT: Neg for any acute changes.) Disposition Disposition: Discharge Clinical Impression: Dizziness on standing Disposition: Home, Self-Care Condition: (2) Stable Instructions: Dizziness (ED) Additional Instructions: Please take Tylenol or Motrin for pain and please use Antivert if needed. Please see your family doctor later this week and return to the ER for any worsening symptoms. Prescriptions: Meclizine HCl [Antivert] 25 mg PO BID #14 tab Forms: Patient Portal Access Time of Disposition: 20:52 Quality - Quality Measures Quality Measures: N/A - Blood Pressure Screening View Details: Yes Does Patient Have Any of the Following: Active Dx of HTN Blood Pressure Classification: Hypertensive Reading Systolic Measurement: 188 Diastolic Measurement: 99 Screening for High Blood Pressure: Patient Exclusion, Hx of HTN [G9744]
[2018-01-31 18:34] LABS: BASO % 0.4 % (0-6); EOS % 3.7 % (0-6); GRAN % 52.8 % (47-80); HEMATOCRIT 47.9 % (35.0-47.0); HEMOGLOBIN 15.3 gm/dl (11.6-16.0); LYMPH % 35.3 % (16-45); MEAN CORPUSCULAR HEMOGLOBIN 30.7 pg (27-33); MEAN CORPUSCULAR HGB CONC 31.9 g/dl (32-36); MEAN PLATELET VOLUME 8.8 fl (7.4-10.4); MONO % 7.8 % (0-9); PLATELET COUNT 196 K/uL (130-400); RED BLOOD COUNT 4.99 M/uL (3.80-5.40); RED CELL DISTRIBUTION WIDTH 13.3 % (11.5-14.5); WHITE BLOOD COUNT W/O DIFF 5.1 K/uL (4.2-12.2)
[2018-01-31 18:41] LABS: BLOOD UREA NITROGEN 19 mg/dL (8-23); CREATININE 0.7 mg/dL (0.5-0.9); EST GLOMERULAR FILTRATION RATE > 60 mL/min
[2018-01-31 18:42] LABS: TOTAL PROTEIN 7.1 g/dL (6.6-8.7)
[2018-01-31 18:44] LABS: GLUCOSE,RANDOM 125 mg/dL (74-109)
[2018-01-31 18:47] LABS: ALB/GLOB RATIO 1.3 (1.1-1.8); ALKALINE PHOSPHATASE 100 U/L (35-104); ALT/SGPT 35 U/L (<33); AST/SGOT 25 U/L (10.0-35.0)
--- NOTE | 2018-02-03 10:51 | CT SCAN REPORT ---
EXAM: CT SCAN HEAD WO CONTRAST HISTORY: PATIENT HAS HISTORY OF HIGH BLOOD PRESSURE. HEADACHES. LIGHTHEADED. TECHNIQUE: Serial axial CT scan of the head was performed at 2.5 mm intervals from the base of the skull to the apex without the use of intravenous contrast. COMPARISON: Comparison CT scan of the head dated 09/11/2009 is provided. FINDINGS: The ventricles, cisterns, sulci appear within normal limits for size , shape, and attenuation. There is no mass or mass effect. The drew and white differentiation appear within normal limits. There is no CT evidence of intra or extraaxial fluid collection to suggest bleeding. Hypodensity within the left basal ganglia region is unchanged with respect to the prior examination. 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 Bone windows demonstrate no CT evidence of a fracture or dislocation of the skull. Paranasal sinuses are unremarkable. IMPRESSION: STABLE CT APPEARANCE OF THE BRAIN WITH RESPECT TO THE PRIOR EXAMINATION. JOB NUMBER: [id number] MTDD
== END 2018-01-31 20:58 | disposition home or self-care (01) ==
LOC: ER 18:02
DX: R42 Dizziness and giddiness (principal); R51 Headache; I10 Essential (primary) hypertension
CPT/HCPCS: 70450; 80053; 85025; 93005; 93010; 99284

== ENCOUNTER 2018-03-20 17:29 | Emergency (ER) | payer BC ==
[2018-03-20] MEDS ORDERED: SODIUM CHLORIDE 0.9% 500 ML IV ONE (17:45)
[2018-03-20] MEDS ORDERED: ONDANSETRON HCL IV 4 MG/2 ML VIAL IV ONE (17:45)
[2018-03-20] MEDS ORDERED: HYDROMORPHONE HCL 2 MG/ML VIAL IVP ONE (17:48)
[2018-03-20 17:58] LABS: HEMATOCRIT 49.2 % (35.0-47.0); HEMOGLOBIN 15.7 gm/dl (11.6-16.0); MEAN CELL VOLUME 95.7 fl (81-97); MEAN CORPUSCULAR HEMOGLOBIN 30.5 pg (27-33); MEAN CORPUSCULAR HGB CONC 31.9 g/dl (32-36); MEAN PLATELET VOLUME 8.6 fl (7.4-10.4); PLATELET COUNT 221 K/uL (130-400); RED BLOOD COUNT 5.14 M/uL (3.80-5.40); RED CELL DISTRIBUTION WIDTH 13.3 % (11.5-14.5); WHITE BLOOD COUNT W/O DIFF 5.5 K/uL (4.2-12.2)
--- NOTE | 2018-03-20 18:10 | Emergency Department Record ---
History of Present Illness - General Chief complaint: Flank Pain Stated complaint: RT SIDE AND ABD PAIN/BACK PAIN Time Seen by Provider: 03/20/18 17:40 Source: Patient Mode of Arrival: Ambulatory Limitations: No limitations - History of Present Illness Initial comments: pt c/o r flank pain for 3 hrs which has grown progressively worse. she has had kidney stones in the past. the pain is severe.. her last abd ct was in august 2017 Complaint: Other Onset/Timin -: Hour(s) Location: Other Radiation: R flank Severity: Moderate Severity scale (1-10): 10 Quality: Aching, Cramping, Crushing, Sharp Consistency: Constant, Intermittent Improves with: None Worsens with: None Patient : No Associated Symptoms: Nausea/vomiting - Related Data Previous Rx's Medication Instructions Recorded Lidocaine Patch [Lidoderm] 1 ea TOP DAILY #7 patch 08/24/17 Meclizine HCl [Antivert] 25 mg PO BID #14 tab 01/31/18 Allergies Allergy/AdvReac Type Severity Reaction Status Date / Time sulfamethoxazole Allergy Mild seizures Verified 03/20/18 17:36 [From Bactrim] trimethoprim [From Bactrim] Allergy Mild seizures Verified 03/20/18 17:36 erythromycin base Allergy Unknown ITCHING Verified 03/20/18 17:36 hydrocodone bitartrate Allergy Unknown ITCHING Verified 03/20/18 17:36 [From VICODIN] tramadol [TRAMADOL] Allergy Unknown ITCHING Verified 03/20/18 17:36 Travel Screening - Travel/Exposure Within Last 30 Days Have you traveled within the last 30 days?: No - Travel/Exposure Within Last Year Have you traveled outside the [place] in the last year?: No - Additonal Travel Details Have you been exposed to anyone with a communicable illness?: No - Travel Symptoms Symptom Screening: None Review of Systems Reviewed: No additional complaints except as noted below Constitutional: Reports: As per HPI. Denies: Chills, Fever, Malaise, Night sweats, Weakness, Weight change Eyes: Reports: As per HPI. Denies: Eye discharge, Eye pain, Photophobia, Vision change ENT: Reports: As per HPI. Denies: Congestion, Dental pain, Ear pain, Epistaxis , Hearing loss, Throat pain Respiratory: Reports: As per HPI. Denies: Cough, Dyspnea, Hemoptysis, Stridor, Wheezes Cardiovascular: Reports: As per HPI. Denies: Arrhythmia, Chest pain, Dyspnea on exertion, Edema, Murmurs, Orthopnea, Palpitations, Paroxysmal nocturnal dyspnea, Rheumatic Fever, Syncope Endocrine: Reports: As per HPI. Denies: Fatigue, Heat or cold intolerance, Polydipsia, Polyuria Gastrointestinal: Reports: As per HPI, Abdominal pain, Nausea. Denies: Constipation, Diarrhea, Hematemesis, Hematochezia, Melena, Vomiting Genitourinary: Reports: As per HPI. Denies: Abnormal menses, Discharge, Dyspareunia, Dysuria, Frequency, Hematuria, Incontinence, Retention, Urgency Musculoskeletal: Reports: As per HPI. Denies: Arthralgia, Back pain, Gout, Joint swelling, Myalgia, Neck pain Skin: Reports: As per HPI. Denies: Bruising, Change in color, Change in hair/ nails, Lesions, Pruritus, Rash Neurological: Reports: As per HPI. Denies: Abnormal gait, Confusion, Headache, Numbness, Paresthesias, Seizure, Tingling, Tremors, Vertigo, Weakness Psychiatric: Reports: As per HPI. Denies: Anxiety, Auditory hallucinations, Depression, Homicidal thoughts, Suicidal thoughts, Visual hallucinations Hematological/Lymphatic: Reports: As per HPI. Denies: Anemia, Blood Clots, Easy bleeding, Easy bruising, Swollen glands Past Medical History - SOCIAL HISTORY Smoking Status: Never smoker Alcohol Use: None Drug Use: None - RESPIRATORY Hx Respiratory Disorders: Yes Hx Bronchitis: Yes (CHRONIC) - CARDIOVASCULAR Hx Cardio Disorders: Yes Hx Hypertension: Yes - NEURO Hx Neuro Disorders: No - GI Hx GI Disorders: Yes Hx Abdominal Pain: Yes (RT FLANK) Hx Reflux: Yes (OCC.) Hx Nausea/Vomiting: Yes (occass.) Hx of Polyps: Yes (POLYP COLON BENIGN) - Hx Genitourinary Disorders: Yes Hx Kidney Stones: Yes (POSSIBLY PASSED) - ENDOCRINE Hx Endocrine Disorders: No - MUSCULOSKELETAL Hx Musculoskeletal Disorders: No Hx Arthritis: Yes (OSTEOARTHRITIS) Comment:: HX FACET BLOCK, SPONDYLOSIS - PSYCH Hx Psych Problems: No - HEMATOLOGY/ONCOLOGY Hx Hematology/Oncology Disorders: No Family Medical History Any Significant Family History?: Yes Hx Heart Disease: Mother, Children Physical Exam - General General Appearance: Alert, Oriented x3, Cooperative, Moderate distress - Head Head exam: Normal inspection - Eye Eye exam: Normal appearance, PERRL, EOMI Pupils: Normal accommodation - ENT ENT exam: Normal exam, Mucous membranes moist, Normal external ear exam, Normal orophraynx Ear exam: Normal external inspection. negative: External canal tenderness Nasal Exam: Normal inspection. negative: Discharge, Sinus tenderness Mouth exam: Normal external inspection, Tongue normal Teeth exam: Normal inspection. negative: Dental caries Throat exam: Normal inspection. negative: Tonsillar erythema, Tonsillar exudate - Neck Neck exam: Normal inspection, Full ROM. negative: Tenderness - Respiratory Respiratory exam: Normal lung sounds bilaterally. negative: Respiratory distress - Cardiovascular Cardiovascular Exam: Normal rhythm, Normal heart sounds, Tachycardia - GI/Abdominal GI/Abdominal exam: Soft, Normal bowel sounds, Tenderness (r flank) - Rectal Rectal exam: Deferred - exam: Deferred - Extremities Extremities exam: Normal inspection, Full ROM, Normal capillary refill. negative: Tenderness - Back Back exam: Reports: Normal inspection, Full ROM. Denies: Muscle spasm, Rash noted, Tenderness - Neurological Neurological exam: Alert, Normal gait, Oriented X3, Reflexes normal - Psychiatric Psychiatric exam: Normal affect, Normal mood - Skin Skin exam: Dry, Intact, Normal color, Warm Course Vital Signs 03/20/18 17:55 Temperature 97.9 F Pulse Rate [ 115 H Pulse Ox Probe] Respiratory 24 Rate Blood Pressure 173/98 [Left Arm] Pulse Ox 98 - Reevaluation(s) Reevaluation #1: 03/20/18 19:24 pts pain is better but still 4-5/10. urine is infected. pt desats with 1mg dilaudid to 88-89% so was placed on 2 ltrs. pt discussed w dr tanner who requested that the pt be sent to [facility] Medical Decision Making - Lab Data Result diagrams: 03/20/18 17:50 03/20/18 17:50 Lab Results 03/20/18 Range/Units 17:50 WBC 5.5 (4.2-12.2) K/uL RBC 5.14 (3.80-5.40) M/uL Hgb 15.7 (11.6-16.0) gm/dl Hct 49.2 H (35.0-47.0) % MCV 95.7 (81-97) fl MCH 30.5 (27-33) pg MCHC 31.9 L (32-36) g/dl RDW 13.3 (11.5-14.5) % Plt Count 221 (130-400) K/uL MPV 8.6 (7.4-10.4) fl Eosinophils % Not Reportable Basophils % Not Reportable Disposition Disposition: Transfer Clinical Impression: Renal lithiasis, Hypoxia Hydronephrosis Qualifiers: Hydronephrosis type: with ureteral calculous obstruction Qualified Code(s): N13.2 - Hydronephrosis with renal and ureteral calculous obstruction UTI (urinary tract infection) Qualifiers: Urinary tract infection type: acute cystitis Hematuria presence: with hematuria Qualified Code(s): N30.01 - Acute cystitis with hematuria Disposition: Acute Care Hospital Transfer Transfer To: [facility] Reason For Transfer: needs urologist Accepting Physician: dr tanner Time Discussed w/Accepting Physician: 19:28 Forms: Patient Portal Access Quality - Quality Measures Quality Measures: N/A - Blood Pressure Screening Does Patient Have Any of the Following: Active Dx of HTN Blood Pressure Classification: Hypertensive Reading Systolic Measurement: 159 Diastolic Measurement: 79 Screening for High Blood Pressure: Patient Exclusion, Hx of HTN [[id number]]
[2018-03-20 18:12] LABS: BILIRUBIN,TOTAL 0.6 mg/dL (0.2-1.0); TOTAL PROTEIN 7.6 g/dL (6.6-8.7)
[2018-03-20 18:17] LABS: ALB/GLOB RATIO 1.3 (1.1-1.8); ALBUMIN 4.3 g/dL (4.0-5.0)
[2018-03-20] MEDS ORDERED: 0.9 % SODIUM CHLORIDE 1,000 ML BAG IV ONE (18:40)
[2018-03-20] MEDS ORDERED: PROMETHAZINE HCL 6.25 MG in 0.9 % SODIUM CHLORIDE 100ML 100 ML IVPB ONE (18:43)
[2018-03-20 18:52] LABS: URINE APPEARANCE CLEAR; URINE BILIRUBIN NEGATIVE (NEGATIVE); URINE BLOOD LARGE (NEGATIVE); URINE COLOR YELLOW; URINE GLUCOSE (UA) NEGATIVE (NEGATIVE); URINE KETONE NEGATIVE (NEGATIVE); URINE LEUKOCYTE ESTERASE SMALL (NEGATIVE); URINE NITRITE POSITIVE (NEGATIVE); URINE PROTEIN NEGATIVE (NEGATIVE); URINE UROBILINOGEN 0.2 E.U./dL (0.20 - 1.00)
[2018-03-20 19:00] LABS: URINE EPITHELIAL CELLS 0 - 2 (FEW)
[2018-03-20 19:01] LABS: URINE BACTERIA 2+
[2018-03-20] MEDS ORDERED: CIPROFLOXACIN LACTATE/D5W 400 MG/200 ML BAG IVPB ONE (19:09)
[2018-03-20] MEDS ORDERED: ONDANSETRON HCL IV 4 MG/2 ML VIAL IVP ONE (19:39)
--- NOTE | 2018-03-23 11:02 | CT SCAN REPORT ---
EXAM: CT OF THE ABDOMEN AND PELVIS WITHOUT CONTRAST HISTORY: RIGHT FLANK PAIN. TECHNIQUE: Noncontrast CT images are obtained from the dome of the diaphragm to the symphysis pubis. FINDINGS: The lung bases and pleural spaces are clear. The liver is normal in size and shape without focal mass or biliary dilatation. The gallbladder is surgically absent. The spleen and pancreas are normal. The adrenal glands are normal. Both kidneys demonstrate parapelvic renal cysts. On the right, there is an additional element of mild hydronephrosis secondary to a 4 mm calculus in the proximal right ureter. The distal ureters are unremarkable as is the bladder. There is no mesenteric mass, bowel dilatation, free air, or intraperitoneal free fluid. No pelvic masses are seen. The bones are unremarkable except for mild degenerative change in the lumbar spine. IMPRESSION: FINDINGS OF A MODERATELY OBSTRUCTING PROXIMAL RIGHT URETERAL 4 MM CALCULUS. JOB NUMBER: [id number] [facility]
== END 2018-03-20 19:48 | disposition short-term general hospital (02) ==
LOC: ER 17:29
DX: N13.2 Hydronephrosis with renal and ureteral calculous obstruction (principal); I10 Essential (primary) hypertension
CPT/HCPCS: 99285 ×2; 96365; 96366; 96375; 83690; 80053; 81001; 85027; 74176; J0744; J2405; J1170; J2550; J7030

== ENCOUNTER 2018-12-07 08:49 | Day surgery (SDC) | payer BC ==
[~2018-12-07 08:49] MED LIST changes: -ACETAMINOPHEN 1,000 MG/100 ML BTL IV ONE; +ACETAMINOPHEN 1,000 MG/100 ML BTL IVPB ONE; -CEFAZOLIN 2 Gram 2 GM/50 ML BAG IVPB ONE; -FAMOTIDINE 20MG TABLET PO ONE; -MECLIZINE 25 MG TABLET PO ONE; -METOCLOPRAMIDE 10 MG TABLET PO ONE
[2018-12-07] MEDS ORDERED: KETOROLAC 30 MG/ML VIAL IVP ONE (08:50)
[2018-12-07] MEDS ORDERED: SEVOFLURANE 250 ML INH ONE (08:50)
[2018-12-07] MEDS ORDERED: LIDOCAINE 2% MDV (20MG/ML) 20ML VIAL IV ONE (08:50)
[2018-12-07] MEDS ORDERED: ONDANSETRON HCL IV 4 MG/2 ML VIAL IVP ONE (08:50)
[2018-12-07] MEDS ORDERED: FENTANYL PF 100MCG/2ML VIAL IV ONE (08:50)
[2018-12-07] MEDS ORDERED: MIDAZOLAM HCL 2MG/2ML VIAL IV ONE (08:50)
[2018-12-07] MEDS ORDERED: PROPOFOL 10 MG/ML VIAL IV ONE (08:50)
[2018-12-07 09:06] LABS: ABSOLUTE NEUTROPHIL COUNT 2.78; BASO % 0.4 % (0-6); EOS % 3.6 % (0-6); GRAN % 55.5 % (47-80); HEMOGLOBIN 15.1 gm/dl (11.6-16.0); LYMPH % 32.3 % (16-45); MEAN CORPUSCULAR HEMOGLOBIN 30.5 pg (27-33); MEAN CORPUSCULAR HGB CONC 31.5 g/dl (32-36); MONO % 8.2 % (0-9); PLATELET COUNT 198 K/uL (130-400); RED BLOOD COUNT 4.95 M/uL (3.80-5.40); RED CELL DISTRIBUTION WIDTH 13.3 % (11.5-14.5)
[2018-12-07 09:21] LABS: BLOOD UREA NITROGEN 22 mg/dL (8-23); CREATININE 0.8 mg/dL (0.5-0.9); EST GLOMERULAR FILTRATION RATE > 60 mL/min; GLUCOSE,RANDOM 108 mg/dL (74-109)
[2018-12-07] MEDS ORDERED: RINGERS SOLUTION,LACTATED 1,000 ML IV ONE (09:40)
[2018-12-07] MEDS ORDERED: BUPIVACAINE 0.25% W/EPI MPF 30ML VIAL SQ ONE (11:56)
--- NOTE | 2018-12-07 13:52 | Operative Note ---
DATE OF SURGERY: 12/07/2018 SURGEON: Cody Bassett D.O. REFERRING PHYSICIAN: Kelli Martines D.O. PREOPERATIVE DIAGNOSIS: TEAR OF THE MEDIAL AND LATERAL MENISCUS OF THE LEFT KNEE. POSTOPERATIVE DIAGNOSIS: 1. TORN MEDIAL AND LATERAL MENISCUS OF THE LEFT KNEE. 2. CHONDROMALACIA MEDIAL FEMORAL CONDYLE, LATERAL FEMORAL CONDYLE, AND TROCHLEA LEFT KNEE. OPERATION: 1. ARTHROSCOPIC PARTIAL MEDIAL AND LATERAL MENISCECTOMY LEFT KNEE. 2. ARTHROSCOPIC CHONDROPLASTY MEDIAL FEMORAL CONDYLE LEFT KNEE. DESCRIPTION: This 72-year-old female was taken to the Operating Room and placed in the supine position in the operating room table. General anesthetic was administered. The left lower extremity was elevated, it was exsanguinated and the tourniquet was inflated to 300 mmHg. Arthroscopic knee pham was applied. The left knee was prepped with Hibiclens and draped in the usual sterile fashion. An inferolateral portal was established for the 4 mm arthroscope and initial evaluation of the joint demonstrated normal appearance of the suprapatellar pouch. 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 This area was probed through an inferomedial portal and no additional findings were present. The medial compartment was entered and retear of the posterior horn of the medial meniscus was present with the apex of the tear being at approximately the 10:30-11:00 o'clock position and utilized basket forceps and rotating shaver. We resected back to the apex which was very near the meniscal synovial junction and smoothed and tapered in each direction to restore stability to the medial meniscus. Re-probing confirmed stability, however, there was some instability of the articular cartilage in the medial femoral condyle and chondroplasty was performed to stabilize the articular cartilage there. This was Grade 2 changes. The intercondylar notch was examined and found to be normal. The lateral compartment was entered and a severe tear of the lateral meniscus was present. The anterior horn was torn at the meniscal synovial junction as well as frayed anteriorly and the body was equally effected with degenerative and radial tears present in that location. We resected the unstable fragments anteriorly and the tear was seen to actually develop further posteriorly than originally thought extending into the body of the meniscus, this was resected to what was felt to be a stable rim. The patent also had an area of about 1.5 cm in the center of the weight bearing surface of the lateral femoral condyle with Grade 2 changes, but no gross instability of the articular cartilage was present there and it was not further disturbed. The joint was copiously irrigated and suctioned. All areas were re-examined and no additional findings were present. The joint was suctioned, the instruments were removed, the portals were infiltrated with 0.25% Marcaine with epinephrine, sterile dressings were applied, tourniquet and knee pham were released, and the patient was taken to the Recovery Room in satisfactory condition. We did place two sutures in each arthroscopic portal site, the patient had tears of both the medial and lateral meniscus as described above with Grade 2 chondromalacia of the medial femoral condyle involving the entire articulating weight bearing surface with an area of about 1.5 cm in the center of the lateral femoral condyle also being effected. The patella appeared normal, but the entire trochlea demonstrated Grade 2 changes. JOB NUMBER: [id number] [facility]
== END 2018-12-07 13:05 | disposition home or self-care (01) ==
LOC: SUR 08:49
PROVIDERS: ATTEND Orthopaedic Surgery
DX: S83.242A Other tear of medial meniscus, current injury, left knee, initial encounter (principal); M94.262 Chondromalacia, left knee; I10 Essential (primary) hypertension; Z68.41 Body mass index [BMI] 40.0-44.9, adult
CPT/HCPCS: 80048; 85025; J1885; J2405; J7120